=== PATIENT | male | born 1965 | race Caucasian/White ===

== ENCOUNTER 2019-08-22 22:20 | Emergency (ER) | payer OTHER ==
[2019-08-22 23:27] LABS: BASOPHILS % (AUTO) 0.4 % (0.0-5.0); EOSINOPHILS % (AUTO) 1.5 % (0.0-8.0); HEMATOCRIT 44.1 % (42-54); LYMPHOCYTES % (AUTO) 20.7 % (21.0-51.0); MEAN CORPUSCULAR HEMOGLOBIN 30.1 pg (27.0-33.0); MEAN CORPUSCULAR HGB CONC 32.7 g/dL (32.0-36.0); MEAN CORPUSCULAR VOLUME 92.3 fL (79-99); MONOCYTES % (AUTO) 9.9 % (3.0-13.0); NEUTROPHILS % (AUTO) 66.9 % (40.0-77.0); PLATELET COUNT (AUTO) 121 K/uL (130-400); RED BLOOD CELL COUNT(AUTO) 4.78 MIL/uL (4.50-6.20); RED CELL DISTRIBUTION WIDTH 12.8 % (11.0-15.5); WHITE BLOOD COUNT (AUTO) 6.7 K/uL (4.8-10.8)
[2019-08-22 23:39] LABS: CREATININE 1.3 mg/dL (0.5-1.5); POTASSIUM 3.7 mmol/L (3.5-5.1)
[2019-08-22 23:44] LABS: ALBUMIN 3.8 g/dL (3.5-5.0); BILIRUBIN,TOTAL 0.5 mg/dL (0.2-1.0); TOTAL PROTEIN, SERUM 7.4 g/dL (6.0-8.3)
== END 2019-08-23 00:07 | disposition home or self-care (01) ==
LOC: EDH 22:20
DX: J11.1 Influenza due to unidentified influenza virus with other respiratory manifestations (principal); F43.10 Post-traumatic stress disorder, unspecified; I25.10 Atherosclerotic heart disease of native coronary artery without angina pectoris; F41.9 Anxiety disorder, unspecified; F32.9 Major depressive disorder, single episode, unspecified; I10 Essential (primary) hypertension; E11.9 Type 2 diabetes mellitus without complications; Z72.0 Tobacco use; Z90.49 Acquired absence of other specified parts of digestive tract; Z98.890 Other specified postprocedural states; Z88.1 Allergy status to other antibiotic agents
CPT/HCPCS: 36415; 71046; 80053; 84484; 85025; 87804; 93005

== ENCOUNTER 2022-05-27 13:02 | Emergency (ER) | payer OTHER ==
[~2022-05-27] VITALS: Ht 167.6 cm; Wt 132.4 kg
[2022-05-27 13:50] LABS: BASOPHILS % (AUTO) 0.5 % (0.0-5.0); EOSINOPHILS % (AUTO) 3.1 % (0.0-8.0); HEMATOCRIT 44.5 % (42-54); LYMPHOCYTES % (AUTO) 16.4 % (21.0-51.0); MEAN CORPUSCULAR HEMOGLOBIN 30.6 pg (27.0-33.0); MEAN CORPUSCULAR HGB CONC 35.1 g/dL (32.0-36.0); MEAN CORPUSCULAR VOLUME 87.3 fL (79-99); MONOCYTES % (AUTO) 7.2 % (3.0-13.0); NEUTROPHILS % (AUTO) 71.9 % (40.0-77.0); PLATELET COUNT (AUTO) 164 K/uL (130-400); RED CELL DISTRIBUTION WIDTH 12.8 % (11.0-15.5); WHITE BLOOD COUNT (AUTO) 12.7 K/uL (4.8-10.8)
[2022-05-27 13:58] LABS: HEMOGLOBIN A1C 11.4 % (4.0-6.0)
[2022-05-27 13:59] LABS: CREATININE 1.1 mg/dL (0.5-1.5); POTASSIUM 4.1 mmol/L (3.5-5.1)
[2022-05-27 14:04] LABS: ALBUMIN 3.6 g/dL (3.5-5.0); TOTAL PROTEIN, SERUM 7.4 g/dL (6.0-8.3)
[2022-05-27 15:09] VITALS: BP 136/92
== END 2022-05-27 15:11 | disposition home or self-care (01) ==
LOC: EDH 13:02
DX: B37.9 Candidiasis, unspecified (principal); J44.9 Chronic obstructive pulmonary disease, unspecified; E11.9 Type 2 diabetes mellitus without complications; E78.00 Pure hypercholesterolemia, unspecified; I10 Essential (primary) hypertension; Z90.49 Acquired absence of other specified parts of digestive tract; Z98.890 Other specified postprocedural states
CPT/HCPCS: 36415; 80053; 83036; 83605; 84145; 85025

== ENCOUNTER 2024-01-03 23:32 | Inpatient (IN) | payer OTHER ==
[~2024-01-03] VITALS: Ht 165.1 cm; Wt 129.4 kg
[2024-01-04] VITALS (14 sets, daily range): BP systolic 115–134; BP diastolic 68–84; PULSE 78–104; RESP 18–21; O2SAT 94–98
[2024-01-04] MEDS: SOLU-MEDROL 125MG VIAL IVP ONE (00:24)
[2024-01-04] MEDS: IPRATROPIUM/ALBUTEROL SULFATE 3 ML SOLUTION IH ONE (00:32)
[2024-01-04 00:53] LABS: BASOPHILS # (AUTO) 0.15 K/uL (0.00-0.20); BASOPHILS % (AUTO) 1.2 % (0.0-5.0); EOSINOPHILS % (AUTO) 11.7 % (0.0-8.0); HEMATOCRIT 51.2 % (42-54); IMMATURE GRANULOCYTE ABSOLUTE 0.07 K/uL (0-1); LYMPHOCYTES # (AUTO) 3.6 K/uL (1.0-4.8); LYMPHOCYTES % (AUTO) 27.7 % (21.0-51.0); MEAN CORPUSCULAR HEMOGLOBIN 30.7 pg (27.0-33.0); MEAN CORPUSCULAR VOLUME 90.5 fL (79-99); MONOCYTES # (AUTO) 0.9 K/uL (0.1-1.0); MONOCYTES % (AUTO) 6.6 % (3.0-13.0); NEUTROPHILS # (AUTO) 6.7 K/uL (1.8-7.7); NEUTROPHILS % (AUTO) 52.3 % (40.0-77.0); PLATELET COUNT (AUTO) 184 K/uL (130-400); RED BLOOD CELL COUNT(AUTO) 5.66 MIL/uL (4.50-6.20); RED CELL DISTRIBUTION WIDTH 12.7 % (11.0-15.5); WHITE BLOOD COUNT (AUTO) 12.9 K/uL (4.8-10.8)
[2024-01-04 01:13] LABS: B-TYPE NATRIURETIC PEPTIDE 63 pg/mL (0-100)
[2024-01-04 01:16] LABS: CREATININE 1.2 mg/dL (0.5-1.3); POTASSIUM 4.1 mmol/L (3.5-5.1)
[2024-01-04 01:21] LABS: ALBUMIN 3.9 g/dL (3.5-5.0); BILIRUBIN,TOTAL 0.6 mg/dL (0.2-1.0); TOTAL PROTEIN, SERUM 7.3 g/dL (6.0-8.3)
[2024-01-04] MEDS: SOLU-MEDROL 125MG VIAL IVP SCH (02:22)
[2024-01-04] MEDS ORDERED: KCL 20 MEQ ERTAB PO PRN (02:30)
[2024-01-04] MEDS ORDERED: ALBUTEROL 0.083% 2.5 MG/3 ML INH IH PRN ×2 (02:30→07:00)
[2024-01-04] MEDS ORDERED: HYDROCODONE/ACETAMINOPHEN 5/325 MG TAB PO PRN (02:30)
[2024-01-04] MEDS ORDERED: POTASSIUM CHLORIDE 10% ELIXIR 20 MEQ/15 ML UDCUP PO PRN (02:30)
[2024-01-04] MEDS ORDERED: DOCUSATE SODIUM 100 MG CAP PO PRN (02:30)
[2024-01-04] MEDS ORDERED: MAGNESIUM 2GM PREMIX 50ML 50 ML IV PRN (02:30)
[2024-01-04] MEDS ORDERED: LACTULOSE 20 GM/30 ML UDCUP PO PRN (02:30)
[2024-01-04] MEDS ORDERED: LABETALOL 20MG SYG IV PRN (02:30)
[2024-01-04] MEDS ORDERED: HYDRALAZINE 20MG/ML VIAL IV PRN (02:30)
[2024-01-04] MEDS ORDERED: POTASSIUM CHLORIDE 10MEQ/100ML 100 ML IV PRN (02:30)
[2024-01-04] MEDS ORDERED: ONDANSETRON 4MG INJ IVP PRN (02:30)
[2024-01-04] MEDS ORDERED: TRAMADOL HCL 50 MG TABLET PO PRN (02:30)
[2024-01-04 02:39] LABS: ADD UA MICROSCOPIC YES; APPEARANCE,URINE CLEAR (CLEAR); BILIRUBIN,URINE NEGATIVE (NEGATIVE); COLOR,URINE LIGHT-YELLOW (YELLOW); GLUCOSE, URINE (UA) 50 mg/dL (NEGATIVE); KETONES,URINE NEGATIVE (NEGATIVE); LEUKOCYTE ESTERASE ,URINE NEGATIVE Leu/uL (NEGATIVE); NITRATE,URINE NEGATIVE (NEGATIVE); OCCULT BLOOD,URINE NEGATIVE (NEGATIVE); PH,URINE 5.5 (5.0-8.0); PROTEIN,URINE NEGATIVE (NEGATIVE); UROBILINOGEN,URINE 0.2 mg/dL (0.2-1.0)
[2024-01-04 02:45] LABS: BACTERIA,URINE RARE /HPF (None Seen); MUCUS,URINE RARE LPF (None Seen); RBC,URINE 0-1 /HPF (0-1); SQUAMOUS EPITHELIAL CELL,UR RARE /HPF (0-2)
[2024-01-04] MEDS ORDERED: ATEN25TA PO (04:13)
[2024-01-04] MEDS ORDERED: BUSP15TA3 PO (04:13)
[2024-01-04] MEDS ORDERED: ALBUTERO (04:13)
[2024-01-04] MEDS ORDERED: EMPA25TA PO (04:13)
[2024-01-04] MEDS ORDERED: ASPI-1197 PO (04:13)
[2024-01-04] MEDS ORDERED: TIOT4MIS2 IH (04:13)
[2024-01-04] MEDS ORDERED: METF-446 PO (04:13)
[2024-01-04] MEDS ORDERED: VITAMIN d PO (04:13)
[2024-01-04] MEDS ORDERED: AMLO-257 PO (04:13)
[2024-01-04] MEDS ORDERED: OMEG100033 PO (04:13)
[2024-01-04] MEDS ORDERED: LITH300T4 PO (04:13)
[2024-01-04] MEDS ORDERED: PARO40TA72 PO (04:13)
[2024-01-04 05:00] LABS: BASOPHILS # (AUTO) 0.13 K/uL (0.00-0.20); EOSINOPHILS # (AUTO) 1.53 K/uL (0.00-0.70); EOSINOPHILS % (AUTO) 11.9 % (0.0-8.0); HEMATOCRIT 50.5 % (42-54); IMMATURE GRANULOCYTE ABSOLUTE 0.07 K/uL (0-1); LYMPHOCYTES # (AUTO) 3.7 K/uL (1.0-4.8); MEAN CORPUSCULAR HEMOGLOBIN 31.7 pg (27.0-33.0); MEAN CORPUSCULAR HGB CONC 34.1 g/dL (32.0-36.0); MONOCYTES # (AUTO) 0.9 K/uL (0.1-1.0); MONOCYTES % (AUTO) 6.9 % (3.0-13.0); NEUTROPHILS # (AUTO) 6.5 K/uL (1.8-7.7); NEUTROPHILS % (AUTO) 50.7 % (40.0-77.0); PLATELET COUNT (AUTO) 186 K/uL (130-400); RED BLOOD CELL COUNT(AUTO) 5.43 MIL/uL (4.50-6.20); RED CELL DISTRIBUTION WIDTH 12.9 % (11.0-15.5); WHITE BLOOD COUNT (AUTO) 12.9 K/uL (4.8-10.8)
[2024-01-04] MEDS: ZOSYN 3.375GM +NS 50ML IVPB SCH (05:44)
[2024-01-04] MEDS: FUROSEMIDE 20MG VIAL IV SCH (05:44)
[2024-01-04] MEDS: INSULIN HUMULIN R 100 UNIT/ML 3ML SQ SCH (06:02)
[2024-01-04] MEDS: IPRATROPIUM/ALBUTEROL SULFATE 3 ML SOLUTION IH SCH (07:08)
[2024-01-04] MEDS: ASPIRIN 81MG CHEW TAB PO SCH (09:54)
[2024-01-04] MEDS: FISH OIL 1000 MG/CAP PO SCH (09:54)
[2024-01-04] MEDS: BUSPIRONE HCL 5 MG TABLET PO SCH (09:56)
[2024-01-04] MEDS: AMLODIPINE 5 MG TAB PO SCH (09:59)
[2024-01-04] MEDS: ATENOLOL 25 MG TABLET PO SCH (09:59)
[2024-01-04] MEDS: PAROXETINE HCL 20 MG TABLET PO SCH (10:00)
[2024-01-04] MEDS: LITHIUM CARBONATE 150 MG CAPSULE PO SCH (10:11)
[2024-01-04 10:28] LABS: AMPHET/METH SCREEN,URINE NEGATIVE (NEGATIVE); BARBITURATE SCREEN, URINE NEGATIVE (NEGATIVE); BENZODIAZEPINES SCREEN,URINE NEGATIVE (NEGATIVE); CANNABINOID SCREEN,URINE NEGATIVE (NEGATIVE); COCAINE SCREEN,URINE NEGATIVE (NEGATIVE); OPIATE SCREEN,URINE NEGATIVE (NEGATIVE); PHENCYCLIDINE SCREEN,URINE NEGATIVE (NEGATIVE)
[2024-01-04 11:54] LABS: ABG BASE EXCESS -2.6 mmol/L (-2.0-3.0); ABG HCO3 21.3 mmol/L (21.0-28.0); ABG PCO2 34 mmHg (35-48); DEVICE COMMENT RR; PO2, ARTERIAL BG 79.8 mmHg (83.0-108.0); VENT MODE, BG RA (ROOM AIR)
[2024-01-04] MEDS: BUDESONIDE 0.5 MG/2 ML INH IH SCH (18:23)
[2024-01-04 20:09] LABS: RAPID GROUP A STREP negative (NEGATIVE)
[2024-01-04 20:19] LABS: COVID19 (SARS ANTIGEN RAPID) PRESUMPTIVE NEGATIVE (NEGATIVE); INFLUENZA TYPE A Negative For Type A (NEGATIVE); INFLUENZA TYPE B Negative For Type B (NEGATIVE)
[2024-01-05] VITALS (14 sets, daily range): BP systolic 92–125; BP diastolic 50–81; PULSE 78–102; RESP 18–22; O2SAT 95–97
[2024-01-05 02:11] LABS: BASOPHILS # (AUTO) 0.04 K/uL (0.00-0.20); BASOPHILS % (AUTO) 0.2 % (0.0-5.0); EOSINOPHILS # (AUTO) 0.01 K/uL (0.00-0.70); HEMATOCRIT 47.2 % (42-54); IMMATURE GRANULOCYTE ABSOLUTE 0.18 K/uL (0-1); LYMPHOCYTES # (AUTO) 1.4 K/uL (1.0-4.8); LYMPHOCYTES % (AUTO) 6.5 % (21.0-51.0); MEAN CORPUSCULAR HEMOGLOBIN 30.8 pg (27.0-33.0); MEAN CORPUSCULAR HGB CONC 34.5 g/dL (32.0-36.0); MEAN CORPUSCULAR VOLUME 89.2 fL (79-99); MONOCYTES # (AUTO) 1.3 K/uL (0.1-1.0); MONOCYTES % (AUTO) 6.3 % (3.0-13.0); NEUTROPHILS # (AUTO) 17.9 K/uL (1.8-7.7); NEUTROPHILS % (AUTO) 86.1 % (40.0-77.0); PLATELET COUNT (AUTO) 200 K/uL (130-400); RED BLOOD CELL COUNT(AUTO) 5.29 MIL/uL (4.50-6.20); RED CELL DISTRIBUTION WIDTH 12.6 % (11.0-15.5); WHITE BLOOD COUNT (AUTO) 20.8 K/uL (4.8-10.8)
[2024-01-05 02:21] LABS: INR <= 0.93 (0.85-1.15); PROTHROMBIN TIME 10.9 SEC (9.6-11.6)
[2024-01-05 02:33] LABS: ALBUMIN 3.8 g/dL (3.5-5.0); BILIRUBIN,DIRECT 0.2 mg/dL (0.0-0.3); BILIRUBIN,TOTAL 0.7 mg/dL (0.2-1.0); CREATININE 1.7 mg/dL (0.5-1.3); POTASSIUM 4.3 mmol/L (3.5-5.1); THYROID STIMULATING HORMONE 0.47 uIU/mL (0.36-3.74)
[2024-01-05 02:36] LABS: B-TYPE NATRIURETIC PEPTIDE 104 pg/mL (0-100)
[2024-01-05 02:38] LABS: D-DIMER 335 ng/mL (0-500)
[2024-01-05] MEDS ORDERED: PREDNISONE 20 MG TABLET PO SCH (09:00)
[2024-01-05] MEDS ORDERED: POTASSIUM CHLORIDE 10MEQ SR TAB PO PRN (16:30)
[2024-01-05] MEDS: CEFEPIME HCL 1 GM VIAL IVPB SCH (16:52)
[2024-01-06] VITALS (16 sets, daily range): BP systolic 102–119; BP diastolic 64–75; PULSE 47–96; RESP 17–20; O2SAT 96–98
[2024-01-06 06:02] LABS: BASOPHILS # (AUTO) 0.07 K/uL (0.00-0.20); BASOPHILS % (AUTO) 0.4 % (0.0-5.0); EOSINOPHILS # (AUTO) 0.23 K/uL (0.00-0.70); EOSINOPHILS % (AUTO) 1.4 % (0.0-8.0); LYMPHOCYTES # (AUTO) 3.5 K/uL (1.0-4.8); LYMPHOCYTES % (AUTO) 22.1 % (21.0-51.0); MEAN CORPUSCULAR HEMOGLOBIN 31.5 pg (27.0-33.0); MEAN CORPUSCULAR HGB CONC 33.4 g/dL (32.0-36.0); MEAN CORPUSCULAR VOLUME 94.2 fL (79-99); MONOCYTES # (AUTO) 1.1 K/uL (0.1-1.0); MONOCYTES % (AUTO) 6.7 % (3.0-13.0); NEUTROPHILS # (AUTO) 10.9 K/uL (1.8-7.7); NEUTROPHILS % (AUTO) 68.8 % (40.0-77.0); PLATELET COUNT (AUTO) 167 K/uL (130-400); RED BLOOD CELL COUNT(AUTO) 5.31 MIL/uL (4.50-6.20); RED CELL DISTRIBUTION WIDTH 12.7 % (11.0-15.5); WHITE BLOOD COUNT (AUTO) 15.9 K/uL (4.8-10.8)
[2024-01-06 06:20] LABS: ALBUMIN 3.7 g/dL (3.5-5.0); CREATININE 1.1 mg/dL (0.5-1.3); MAGNESIUM 2.1 mg/dL (1.80-2.40); PHOSPHORUS 3.3 mg/dL (2.5-4.9); POTASSIUM 4.5 mmol/L (3.5-5.1); TOTAL PROTEIN, SERUM 6.8 g/dL (6.0-8.3)
[2024-01-06] MEDS: FUROSEMIDE 20 MG TABLET PO SCH (08:41)
[2024-01-06] MEDS: IPRATROPIUM 0.5 MG/2.5 ML INH IH SCH (18:25)
[2024-01-07] VITALS (7 sets, daily range): BP systolic 118–124; BP diastolic 72–79; PULSE 78–90; RESP 16–20; O2SAT 97–98
[2024-01-07 05:33] LABS: BASOPHILS # (AUTO) 0.11 K/uL (0.00-0.20); BASOPHILS % (AUTO) 0.6 % (0.0-5.0); EOSINOPHILS # (AUTO) 0.61 K/uL (0.00-0.70); EOSINOPHILS % (AUTO) 3.5 % (0.0-8.0); LYMPHOCYTES # (AUTO) 3.9 K/uL (1.0-4.8); LYMPHOCYTES % (AUTO) 22.4 % (21.0-51.0); MEAN CORPUSCULAR HEMOGLOBIN 30.7 pg (27.0-33.0); MEAN CORPUSCULAR HGB CONC 33.3 g/dL (32.0-36.0); MEAN CORPUSCULAR VOLUME 92.3 fL (79-99); MONOCYTES # (AUTO) 1.3 K/uL (0.1-1.0); MONOCYTES % (AUTO) 7.4 % (3.0-13.0); NEUTROPHILS # (AUTO) 11.3 K/uL (1.8-7.7); NEUTROPHILS % (AUTO) 65.5 % (40.0-77.0); PLATELET COUNT (AUTO) 186 K/uL (130-400); RED BLOOD CELL COUNT(AUTO) 5.31 MIL/uL (4.50-6.20); RED CELL DISTRIBUTION WIDTH 12.6 % (11.0-15.5); WHITE BLOOD COUNT (AUTO) 17.3 K/uL (4.8-10.8)
[2024-01-07 05:49] LABS: ALBUMIN 3.6 g/dL (3.5-5.0); BILIRUBIN,TOTAL 1.4 mg/dL (0.2-1.0); CREATININE 1.1 mg/dL (0.5-1.3); POTASSIUM 4.3 mmol/L (3.5-5.1)
[2024-01-07] MEDS ORDERED: LEVO750T39 PO (10:26)
== END 2024-01-07 11:45 | disposition home or self-care (01) | DRG 291 ==
LOC: EDH 23:32 → EDHIP 01-04 02:03 → 3CH 01-04 03:05
PROVIDERS: ADMIT Hospitalist; ATTEND Hospitalist
DX: I11.0 Hypertensive heart disease with heart failure (principal); I50.23 Acute on chronic systolic (congestive) heart failure; J44.1 Chronic obstructive pulmonary disease with (acute) exacerbation; E87.1 Hypo-osmolality and hyponatremia; N17.9 Acute kidney failure, unspecified; Z68.42 Body mass index [BMI] 45.0-49.9, adult; E11.65 Type 2 diabetes mellitus with hyperglycemia; Z20.822 Contact with and (suspected) exposure to COVID-19; I25.10 Atherosclerotic heart disease of native coronary artery without angina pectoris; E66.01 Morbid (severe) obesity due to excess calories; E78.00 Pure hypercholesterolemia, unspecified; F17.210 Nicotine dependence, cigarettes, uncomplicated; Z79.51 Long term (current) use of inhaled steroids; Z79.899 Other long term (current) drug therapy; Z87.442 Personal history of urinary calculi; Z90.49 Acquired absence of other specified parts of digestive tract; Z95.5 Presence of coronary angioplasty implant and graft; Z88.1 Allergy status to other antibiotic agents
CPT/HCPCS: 36415; 36600; 71045; 71250; 80053; 80076; 80178; 80305; 81001; 82140; 82550; 82803; 82948; 83735; 83880; 84100; 84145; 84443; 85025; 85378; 85610; 87088; 87426; 87804; 87880; 93005; 93306; 94640; 94660; 94664; 94667; 94668; 96372; 96375; G0378; J0692; J1815; J1940; J2543; J2919

== ENCOUNTER → 2024-02-06 | Outpatient (CLI) | payer OTHER ==
[~2024-02-06] MED LIST: ALBUTERO; AMLO-257 PO; ASPI-1197 PO; BUSP15TA3 PO; EMPA25TA PO; IOHEXOL 350 MG/ML 100ML INFUS..BTL IV ONE; LEVO750T39 PO; LITH300T4 PO; METF-446 PO; METOPROLOL TARTRATE 1 MG/ML 5ML VIAL IV ONE; OMEG100033 PO; TIOT4MIS2 IH; VITAMIN d PO
== END | disposition home or self-care (01) ==
LOC: RAH 12:43
PROVIDERS: ATTEND Student in an Organized Health Care Education/Training Program
DX: I50.9 Heart failure, unspecified (principal)
CPT/HCPCS: 75574; J3490 ×2; Q9967

== ENCOUNTER 2024-04-16 09:47 | Day surgery (SDC) | payer OTHER ==
[2024-04-14 11:42] VITALS: BP 153/97; PULSE 84; RESP 18; TEMP 98.6
[2024-04-14 11:46] LABS: EOSINOPHILS # (AUTO) 0.27 K/uL (0.00-0.70); EOSINOPHILS % (AUTO) 2.6 % (0.0-8.0); HEMATOCRIT 51.3 % (42-54); IMMATURE GRANULOCYTE ABSOLUTE 0.07 K/uL (0-1); LYMPHOCYTES # (AUTO) 2.6 K/uL (1.0-4.8); LYMPHOCYTES % (AUTO) 25.1 % (21.0-51.0); MEAN CORPUSCULAR HEMOGLOBIN 31.1 pg (27.0-33.0); MEAN CORPUSCULAR HGB CONC 33.7 g/dL (32.0-36.0); MEAN CORPUSCULAR VOLUME 92.1 fL (79-99); MONOCYTES # (AUTO) 0.7 K/uL (0.1-1.0); NEUTROPHILS # (AUTO) 6.5 K/uL (1.8-7.7); NEUTROPHILS % (AUTO) 63.6 % (40.0-77.0); PLATELET COUNT (AUTO) 179 K/uL (130-400); RED BLOOD CELL COUNT(AUTO) 5.57 MIL/uL (4.50-6.20); RED CELL DISTRIBUTION WIDTH 12.7 % (11.0-15.5); WHITE BLOOD COUNT (AUTO) 10.2 K/uL (4.8-10.8)
[2024-04-14 11:56] LABS: CREATININE 1.1 mg/dL (0.5-1.3); POTASSIUM 4.9 mmol/L (3.5-5.1)
[2024-04-14 12:00] LABS: INR 0.99 (0.85-1.15); PROTHROMBIN TIME 10.7 SEC (9.6-11.6)
[2024-04-14 12:02] LABS: PARTIAL THROMBOPLASTIN TIME 28.5 SEC (26.3-35.5)
[2024-04-14 12:16] LABS: B-TYPE NATRIURETIC PEPTIDE 11 pg/mL (0-100)
[2024-04-16] VITALS (8 sets, daily range): BP systolic 125–160; BP diastolic 71–84; PULSE 69–86; RESP 12–20; TEMP 97.8–98.2
[~2024-04-16] VITALS: Ht 170.2 cm; Wt 125.9 kg
[~2024-04-16 09:47] MED LIST changes: +0.9%NACL 1000ML 1,000 ML IV SCH; -ALBUTERO; +ALBUTERO IH; +ATOR40TA71 PO; +FURO-151 PO; -IOHEXOL 350 MG/ML 100ML INFUS..BTL IV ONE; -LEVO750T39 PO; -METOPROLOL TARTRATE 1 MG/ML 5ML VIAL IV ONE; +NITR0.4T50 SL; +SACU1TAB7 PO; +prozac PO
[2024-04-16] MEDS ORDERED: LIDOCAINE HCL 400MG/20ML VIAL ONE (10:31)
[2024-04-16] MEDS ORDERED: IOHEXOL 350 MG/ML 100ML INFUS..BTL IV ONE (10:31)
[2024-04-16] MEDS ORDERED: HEParin-NS 1,000 UNIT/500 ML 1,000 ML IV ONE (10:33)
[2024-04-16] MEDS ORDERED: NITROGLYCERIN 50MG VIAL ONE (10:33)
[2024-04-16] MEDS ORDERED: VERAPAMIL HCL 2.5 MG/ML VIAL ONE (10:38)
[2024-04-16] MEDS ORDERED: HEParin 10,000 UNIT/10ML (1,000 UNIT/ML) VIAL ONE (10:38)
[2024-04-16] MEDS ORDERED: FENTanyl CITRate PF 50 MCG/1 ML 2ML VIAL ONE (11:03)
[2024-04-16] MEDS ORDERED: MIDAZOLAM HCL 1 MG/ML 2ML VIAL ONE ×2 (11:03→11:35)
[2024-04-16] MEDS ORDERED: 0.9%NACL 1000ML 1,000 ML IV SCH (13:00)
[2024-04-16] MEDS ORDERED: DEXTROSE 50%-WATER 50 ML DISP.SYRIN IV PRN (13:00)
[2024-04-16] MEDS ORDERED: GLUCAGON 1MG KIT 1 MG ML IM PRN (13:00)
[2024-04-16] MEDS ORDERED: FLUO40CA7 PO (14:25)
== END 2024-04-16 15:55 | disposition home or self-care (01) ==
LOC: DAH 09:47
PROVIDERS: ATTEND Student in an Organized Health Care Education/Training Program
DX: I25.118 Atherosclerotic heart disease of native coronary artery with other forms of angina pectoris (principal); E78.2 Mixed hyperlipidemia; G47.00 Insomnia, unspecified; I45.10 Unspecified right bundle-branch block; I13.0 Hypertensive heart and chronic kidney disease with heart failure and stage 1 through stage 4 chronic kidney disease, or unspecified chronic kidney disease; I50.22 Chronic systolic (congestive) heart failure; E11.22 Type 2 diabetes mellitus with diabetic chronic kidney disease; N18.9 Chronic kidney disease, unspecified; E66.9 Obesity, unspecified; Z88.1 Allergy status to other antibiotic agents; Z68.41 Body mass index [BMI] 40.0-44.9, adult; Z79.82 Long term (current) use of aspirin; Z79.84 Long term (current) use of oral hypoglycemic drugs; Z79.899 Other long term (current) drug therapy
CPT/HCPCS: 80048; 83880; 85025; 85610; 85730; 36415; 71045; 93005; 93460; 82948; C1894 ×2; C1769 ×2; A4649; Q9965; J3010; J3490 ×3; J1644 ×2; J2250 ×2; Q9967; A4215; A4222; A4663; A4216; A4606; A4223 ×3; A4221; 99156; 99157

== ENCOUNTER → 2024-09-08 | Outpatient (CLI) | payer OTHER ==
[~2024-09-08] MED LIST changes: -0.9%NACL 1000ML 1,000 ML IV SCH; +FLUO40CA7 PO; -prozac PO
[2024-09-08 12:06] LABS: BASOPHILS # (AUTO) 0.18 K/uL (0.00-0.20); BASOPHILS % (AUTO) 1.1 % (0.0-5.0); EOSINOPHILS % (AUTO) 4.2 % (0.0-8.0); HEMATOCRIT 50.6 % (42-54); IMMATURE GRANULOCYTE ABSOLUTE 0.19 K/uL (0-1); LYMPHOCYTES # (AUTO) 5.3 K/uL (1.0-4.8); LYMPHOCYTES % (AUTO) 31.6 % (21.0-51.0); MEAN CORPUSCULAR HEMOGLOBIN 31.3 pg (27.0-33.0); MEAN CORPUSCULAR HGB CONC 33.6 g/dL (32.0-36.0); MONOCYTES # (AUTO) 1.3 K/uL (0.1-1.0); PLATELET COUNT (AUTO) 274 K/uL (130-400); RED BLOOD CELL COUNT(AUTO) 5.44 MIL/uL (4.50-6.20); RED CELL DISTRIBUTION WIDTH 13.2 % (11.0-15.5); WHITE BLOOD COUNT (AUTO) 16.6 K/uL (4.8-10.8)
[2024-09-08 12:13] LABS: HEMOGLOBIN A1C 6.4 % (4.0-6.0)
[2024-09-08 12:31] LABS: ALBUMIN 4.1 g/dL (3.5-5.0); BILIRUBIN,TOTAL 0.5 mg/dL (0.2-1.0); CREATININE 1.4 mg/dL (0.5-1.3); POTASSIUM 4.7 mmol/L (3.5-5.1); THYROID STIMULATING HORMONE 2.88 uIU/mL (0.36-3.74); TOTAL PROTEIN, SERUM 7.8 g/dL (6.0-8.3)
--- NOTE | 2024-09-15 09:37 | HMCSR ---
APPROVED REPORT EXAM: Two-dimensional and M-mode echocardiogram with Doppler and color Doppler. INDICATION ICD: I25.5 Ischemic cardiomyopathy 2D Dimensions RVDd3.4 cmLVEF(%)29.3 (>50%)LVED Vol(simp.)103.0 mL IVSd1.2 (0.7-1.1cm)FS(%)14 %LVES Vol(simp.)72.0 mL LVDd5.7 (3.8-5.6cm)Ao Root(2D)3.7 (2.0-3.7cm)LVEF(%, simp.)30 % PWd0.9 (0.7-1.1cm)LVOT diam2.1 (1.8-2.4cm)LA ESV INDEX (BP)13.76 mL/m2 LVDs4.9 (2.5-4.0cm)IVC diam1.2 cm Aortic Valve AoV Vmax1.0 m/Bobby Peak GR4.2 mmHgLVOT Vmax0.8 m/s AoV VTI0.2 mAo Mean GR2.5 mmHgLVOT VTI0.13 m GENI (VMAX)2.6 cm2AVA (VTI) 2.6 cm2 Mitral Valve MV E Vmax47.0 cm/sDECEL Klyi049 ms MV A Vmax95.4 cm/sP 1/2 T40 ms E/A ratio0.5MVA (PHT)5.5 cm2 TDI E/E' Fitgox49.5E/E' Bhptujz89.2 Pulmonary Valve PV Vmax0.7 m/sPV VTI0.11 mPV Mean GR1 mmHg PV Peak GR2.2 mmHg Tricuspid Valve RAP (EST) 3 mmHg Left Ventricle The left ventricle is mildly dilated. There is mild asymmetric left ventricular hypertrophy. LVEF is 25-30%. Grade 1 diastolic dysfunction Right Ventricle The right ventricle is normal size. Right ventricular systolic function is moderately reduced. Atria The left atrium size is normal. Atrial septal aneurysm is present. The right atrium size is normal. Aortic Valve Aortic valve is trileaflet. Aortic valve leaflets are sclerotic but open well. Trace aortic regurgita tion. There is no aortic valvular stenosis. Mitral Valve The mitral valve is mildly thickened. Mitral regurgitation is trace to mild. There is no mitral valve stenosis. Tricuspid Valve The tricuspid valve leaflets appear normal. There is trace tricuspid regurgitation. Pulmonic Valve The pulmonic valve leaflets are thin and pliable; valve motion is normal. There is trace pulmonic pilar vular regurgitation. Great Vessels The aortic root is normal in size. The IVC is normal in size and collapses >50% with inspiration. Pericardium No pericardial effusion. Conclusion The left ventricle is mildly dilated. There is mild asymmetric left ventricular hypertrophy. LVEF is 25-30%. Grade 1 diastolic dysfunction The right ventricle is normal size. Right ventricular systolic function is moderately reduced. The left atrium size is normal. The right atrium size is normal. Atrial septal aneurysm is present. Mitral regurgitation is trace to mild. No pericardial effusion.
== END | disposition home or self-care (01) ==
LOC: SHCH 08:23
PROVIDERS: ATTEND Student in an Organized Health Care Education/Training Program
DX: I25.5 Ischemic cardiomyopathy (principal); I50.9 Heart failure, unspecified; E11.9 Type 2 diabetes mellitus without complications
CPT/HCPCS: 36415; 80053; 80061; 83036; 83880; 84443; 85025; 93306

== ENCOUNTER 2024-10-15 08:28 | Day surgery (SDC) | payer OTHER ==
[2024-10-13 09:50] VITALS: BP 85/64; PULSE 84; RESP 20; TEMP 97.6
[2024-10-13 10:24] LABS: BASOPHILS # (AUTO) 0.09 K/uL (0.00-0.20); BASOPHILS % (AUTO) 0.8 % (0.0-5.0); EOSINOPHILS # (AUTO) 0.38 K/uL (0.00-0.70); EOSINOPHILS % (AUTO) 3.2 % (0.0-8.0); HEMATOCRIT 51.4 % (42-54); IMMATURE GRANULOCYTE ABSOLUTE 0.09 K/uL (0-1); LYMPHOCYTES # (AUTO) 3.3 K/uL (1.0-4.8); LYMPHOCYTES % (AUTO) 27.9 % (21.0-51.0); MEAN CORPUSCULAR HEMOGLOBIN 31.3 pg (27.0-33.0); MEAN CORPUSCULAR HGB CONC 33.3 g/dL (32.0-36.0); MEAN CORPUSCULAR VOLUME 94.1 fL (79-99); MONOCYTES # (AUTO) 0.7 K/uL (0.1-1.0); MONOCYTES % (AUTO) 5.6 % (3.0-13.0); NEUTROPHILS # (AUTO) 7.3 K/uL (1.8-7.7); NEUTROPHILS % (AUTO) 61.7 % (40.0-77.0); PLATELET COUNT (AUTO) 224 K/uL (130-400); RED BLOOD CELL COUNT(AUTO) 5.46 MIL/uL (4.50-6.20); RED CELL DISTRIBUTION WIDTH 13.2 % (11.0-15.5); WHITE BLOOD COUNT (AUTO) 11.8 K/uL (4.8-10.8)
--- NOTE | 2024-10-13 10:28 | EKG ---
[facility] Test Date: 2024-10-13 Test Time: 10:21:59 Pat Name: DYLLAN NICHOLSON Department: [facility] Room: Gender: M [employer] Checkout Technician: [id number] : 1965 Requested By: RADHA ARANDA Order Number: [id number] Reading MD: Remy Lopez Measurements Intervals [place] Rate: 82 P: 39 TX: 178 QRS: 74 QRSD: 161 T: 37 QT: 426 QTc: 499 Interpretive Statements Sinus rhythm Right bundle branch block Nonspecific STT abnormality Compared to ECG 04/14/2024 11:33:03 No significant changes Electronically Signed On 10-13-2024 12:54:05 SEAM CHECKER by Remy Lopez Please click the below link to view image of tracing.
[2024-10-13 10:32] LABS: CREATININE 1.4 mg/dL (0.5-1.3); POTASSIUM 4.7 mmol/L (3.5-5.1)
[2024-10-13 10:44] LABS: INR 1.01 (0.85-1.15); PROTHROMBIN TIME 10.7 SEC (9.6-11.6)
[2024-10-13 10:46] LABS: PARTIAL THROMBOPLASTIN TIME 28.8 SEC (26.3-35.5)
--- NOTE | 2024-10-13 17:05 | NUR ---
report dr theodore informed of pt low b/p and wbc. no c/o hypotension and pt reported he always runs low. office b/p was 92/60. also that pt made remarks that he was gonna respond with ok but might not necessarily folow instructions. received instructions to have him hold carvedilol, amlodipine and entresto morning of procedure. spouse informed due to pt not available. also reinforced teaching on clears past lunch the day prior to procedure and fasting after midnight if not pt will be cancelled.. spouse voiced understanding.
[~2024-10-15] VITALS: Ht 172.7 cm; Wt 125.1 kg
[~2024-10-15 08:28] MED LIST changes: -LITH300T4 PO; -OMEG100033 PO; +ozempic SQ
[2024-10-15 09:15] VITALS: BP 110/68; PULSE 78; RESP 18; TEMP 97.9
[2024-10-15 09:32] LABS: BASOPHILS % (AUTO) 0.9 % (0.0-5.0); EOSINOPHILS # (AUTO) 0.53 K/uL (0.00-0.70); EOSINOPHILS % (AUTO) 4.6 % (0.0-8.0); HEMATOCRIT 47.8 % (42-54); IMMATURE GRANULOCYTE ABSOLUTE 0.09 K/uL (0-1); LYMPHOCYTES # (AUTO) 3.3 K/uL (1.0-4.8); LYMPHOCYTES % (AUTO) 28.8 % (21.0-51.0); MEAN CORPUSCULAR HGB CONC 33.7 g/dL (32.0-36.0); MEAN CORPUSCULAR VOLUME 92.1 fL (79-99); MONOCYTES # (AUTO) 0.8 K/uL (0.1-1.0); MONOCYTES % (AUTO) 6.5 % (3.0-13.0); NEUTROPHILS # (AUTO) 6.8 K/uL (1.8-7.7); NEUTROPHILS % (AUTO) 58.4 % (40.0-77.0); PLATELET COUNT (AUTO) 203 K/uL (130-400); RED BLOOD CELL COUNT(AUTO) 5.19 MIL/uL (4.50-6.20); RED CELL DISTRIBUTION WIDTH 13.1 % (11.0-15.5); WHITE BLOOD COUNT (AUTO) 11.6 K/uL (4.8-10.8)
[2024-10-15] MEDS ORDERED: CARV12.511 PO (09:57)
[2024-10-15] MEDS: 0.9%NACL 1000ML 1,000 ML IV SCH (10:03)
[2024-10-15 10:19] VITALS: PULSE 85; RESP 18
[2024-10-15] MEDS: ALBUTEROL 0.083% 2.5 MG/3 ML INH IH ONE (10:19)
[2024-10-15] MEDS ORDERED: LIDOCAINE PF 100MG/5ML (2%) SYRINGE 5ML ONE (10:27)
[2024-10-15] MEDS ORDERED: MIDAZOLAM HCL 1 MG/ML 2ML VIAL ONE (10:28)
[2024-10-15] MEDS ORDERED: SUCCINYLCHOLINE CHLORIDE 20 MG/ML 10 ML VIAL ONE (10:28)
[2024-10-15] MEDS ORDERED: rocuRONium bROMide 10MG/1ML 5ML VL ONE (10:28)
[2024-10-15] MEDS ORDERED: proPOFol 10 MG/ML 20ML VIAL IV ONE (10:28)
[2024-10-15] MEDS ORDERED: FENTanyl CITRate PF 50 MCG/1 ML 2ML VIAL ONE (10:29)
== END 2024-10-15 12:55 | disposition home or self-care (01) ==
LOC: DAH 08:28
PROVIDERS: ATTEND Internal Medicine Cardiovascular Disease
DX: I25.5 Ischemic cardiomyopathy (principal); Z53.8 Procedure and treatment not carried out for other reasons; I50.20 Unspecified systolic (congestive) heart failure; I25.10 Atherosclerotic heart disease of native coronary artery without angina pectoris; E11.9 Type 2 diabetes mellitus without complications; E78.5 Hyperlipidemia, unspecified; F17.210 Nicotine dependence, cigarettes, uncomplicated; E66.9 Obesity, unspecified; Z68.41 Body mass index [BMI] 40.0-44.9, adult; Z79.82 Long term (current) use of aspirin; Z88.1 Allergy status to other antibiotic agents; Z79.899 Other long term (current) drug therapy
CPT/HCPCS: 80048; 85025 ×2; 85610; 85730; 36415 ×2; 93005; 82948; 94640; J0330; J3490; J2003; J2250; J2704; J3010

== ENCOUNTER 2024-11-25 19:21 | Emergency (ER) | payer OTHER ==
[~2024-11-25] VITALS: Ht 170.2 cm; Wt 123.4 kg
[~2024-11-25 19:21] MED LIST changes: +CARV12.511 PO
--- NOTE | 2024-11-25 19:31 | NUR ---
TOOK OVER PATIENT AT THIS TIME
[2024-11-25 20:06] LABS: BASOPHILS # (AUTO) 0.09 K/uL (0.00-0.20); BASOPHILS % (AUTO) 0.7 % (0.0-5.0); EOSINOPHILS # (AUTO) 0.36 K/uL (0.00-0.70); EOSINOPHILS % (AUTO) 2.9 % (0.0-8.0); HEMATOCRIT 45.4 % (42-54); IMMATURE GRANULOCYTE ABSOLUTE 0.08 K/uL (0-1); LYMPHOCYTES # (AUTO) 3.7 K/uL (1.0-4.8); LYMPHOCYTES % (AUTO) 30.2 % (21.0-51.0); MEAN CORPUSCULAR HEMOGLOBIN 31.8 pg (27.0-33.0); MEAN CORPUSCULAR HGB CONC 33.9 g/dL (32.0-36.0); MEAN CORPUSCULAR VOLUME 93.8 fL (79-99); MONOCYTES # (AUTO) 0.7 K/uL (0.1-1.0); MONOCYTES % (AUTO) 5.4 % (3.0-13.0); NEUTROPHILS # (AUTO) 7.4 K/uL (1.8-7.7); NEUTROPHILS % (AUTO) 60.2 % (40.0-77.0); PLATELET COUNT (AUTO) 215 K/uL (130-400); RED BLOOD CELL COUNT(AUTO) 4.84 MIL/uL (4.50-6.20); RED CELL DISTRIBUTION WIDTH 12.8 % (11.0-15.5); WHITE BLOOD COUNT (AUTO) 12.4 K/uL (4.8-10.8)
[2024-11-25 20:14] LABS: CARBON DIOXIDE 24 mmol/L (21-32); CHLORIDE 102 mmol/L (101-111); CREATININE 1.5 mg/dL (0.5-1.3); GLOMERULAR FILTR. RATE CALC 54 mL/min (>90); GLUCOSE,RANDOM 137 mg/dL (70-105); POTASSIUM 4.2 mmol/L (3.5-5.1); SODIUM SERUM 138 mmol/L (136-145); UREA NITROGEN, BLOOD 19 mg/dL (7-18)
[2024-11-25 21:11] LABS: ERYTHROCYTE SEDIMENTATION RATE 9 MM/HR (0-20)
[2024-11-25] MEDS ORDERED: SULF1TAB42 PO (21:55)
[2024-11-25] MEDS ORDERED: MUPI22OI2 TP (21:55)
--- NOTE | 2024-11-25 22:00 | ERN ---
ED Note History of Present Illness Stated Complaint: OPEN WOUND ON BOTH FEET Chief Complaint: Wound Check Time Seen by MD: 19:23 Time Seen by Midlevel: 19:26 Dictation: 59 Year old male coming in for evaluation of bilateral plantar wounds. Patient states it started off like athlete's foot and progressed to cracking of the skin and now is concerned because he is diabetic. Denies having any fevers, nausea, vomiting . Allergies: Coded Allergies: ciprofloxacin (Unverified Allergy, Unknown, 08/23/19) Home Meds Reported Medications Carvedilol (Carvedilol) 12.5 Mg Tablet, 12.5 MG PO BID, TAB 10/15/24 [ozempic] No Conflict Check, 1 MG SQ weekly 10/13/24 Fluoxetine HCl (Prozac) 40 Mg Capsule, 40 MG PO AM, CAP 04/16/24 Nitroglycerin (Nitroglycerin) 0.4 Mg Tab.subl, 0.4 MG SL AD PRN for CHEST PAIN, TAB.SL 04/14/24 Atorvastatin Calcium (Atorvastatin Calcium) 40 Mg Tablet, 40 MG PO AM, TAB 04/14/24 Furosemide (Lasix) 40 Mg Tablet, 40 MG PO AM, TAB 04/14/24 Sacubitril/Valsartan (Entresto 49 mg-51 mg Tablet) 49 Mg-51 Mg Tablet, 0.5 EACH PO BID, TAB 04/14/24 [Albutero] No Conflict Check, 2 PUFF IH BID 01/04/24 Tiotropium [place] (Spiriva Respimat) 2.5 Mcg/Actuation Mist.inhal, 2 PUFF IH BID PRN for SHORTNESS OF BREATH 01/04/24 [VITAMIN d] No Conflict Check, PO DAILY 01/04/24 Metformin HCl (Metformin HCl) 1,000 Mg Tablet, 1000 MG PO BID, TAB CONTINUE IN 48 HOURS (04/18/2024) 01/04/24 Empagliflozin (Jardiance) 25 Mg Tablet, 25 MG PO BID, TAB 01/04/24 Buspirone HCl (Buspirone HCl) 15 Mg Tablet, 15 MG PO DAILY, TAB 01/04/24 Aspirin (Aspirin) 81 Mg Tab.chew, 81 MG PO DAILY, TAB.CHEW 01/04/24 Amlodipine Besylate (Amlodipine Besylate) 5 Mg Tablet, 5 MG PO DAILY, TAB 01/04/24 Past Medical History Past Medical History: CHF, COPD, Diabetes-Type II, High Cholesterol, Hypertension, [place] Surgical History: Appendectomy Surgical History Other: ARTERY STENT Social History: Smokers, Lives with family Review of System Dictation Constitutional: Negative for fever,chills, and weight loss Eyes: Negative for injury, pain,redness, and discharge ENT: Negative for injury,pain or swelling Cardiovascular: Negative for chest pain, palpitations, and edema Respiratory: Negative for shortness of breath, cough, and wheezing, Abdomen/GI: Negative for abdominal pain, nausea, vomiting, diarrhea, and constipation Back: Negative for injury and pain : Negative for injury, bleeding and discharge MS/Extremity: Negative for injury and deformity Skin: Negative for rash, and discoloration, bilateral plantar wounds Neuro: Negative for headache, weakness, numbness, tingling, and seizure Psych: Negative for suicide ideation, homicidal ideation, and hallucinations Review of Systems: was completed Initial Vital Sign VS Vital Signs Date Time Temp Pulse Resp B/P (MAP) Pulse Ox O2 Delivery O2 Flow Rate FiO2 11/25/24 19:22 97.0 77 20 104/75 98 Room Air 11/25/24 20:00 0 21 Physical Exam Dictation General: awake, alert, NAD Head/Face: Normocephalic, atraumatic Eyes: PERRL, EOMI, vision at baseline ENT: oral cavity clear, TMs clear, no signs of infection Neck: Trachea midline, supple, no nuchal rigidity Cardiovascular: RRR, normal S1/S2, No MRGs, no JVD Respiratory: CTAB, no respiratory distress, No rales or wheezes Abdomen: Soft, non-tender, non-distended, normal bowel sounds, no guarding or rebound. Skin: Warm, dry, normal turgor, bilateral plantar areas are dry, cracked, there is no drainage, no foul odor. Macerated plantar areas bilaterally MS/Extremity: Pulses equal, no cyanosis, neurovascular intact, FROM Neuro: COAx4, GCS 15, strength 5/5, CN 2-12 intact, normal cerebellar exam, normal gait, Psych: Normal behavior, mood, and affect normal Results (Laboratory/Radiology) Laboratory/Radiology Laboratory Tests Test 11/25/24 19:57 White Blood Count 12.4 K/uL (4.8-10.8) H Red Blood Count 4.84 MIL/uL (4.50-6.20) Hemoglobin 15.4 g/dL (14.0-18.0) Hematocrit 45.4 % (42-54) Mean Corpuscular Volume 93.8 fL (79-99) Mean Corpuscular Hemoglobin 31.8 pg (27.0-33.0) Mean Corpuscular Hemoglobin Concent 33.9 g/dL (32.0-36.0) Red Cell Distribution Width 12.8 % (11.0-15.5) Platelet Count 215 K/uL (130-400) Mean Platelet Volume 10.2 fL (7.5-10.5) Immature Granulocyte % (Auto) 0.6 % (0-1) Neutrophils (%) (Auto) 60.2 % (40.0-77.0) Lymphocytes (%) (Auto) 30.2 % (21.0-51.0) Monocytes (%) (Auto) 5.4 % (3.0-13.0) Eosinophils (%) (Auto) 2.9 % (0.0-8.0) Basophils (%) (Auto) 0.7 % (0.0-5.0) Neutrophils # (Auto) 7.4 K/uL (1.8-7.7) Lymphocytes # (Auto) 3.7 K/uL (1.0-4.8) Monocytes # (Auto) 0.7 K/uL (0.1-1.0) Eosinophils # (Auto) 0.36 K/uL (0.00-0.70) Basophils # (Auto) 0.09 K/uL (0.00-0.20) Absolute Immature Granulocyte (auto 0.08 K/uL (0-1) Nucleated Red Blood Cells 0.0 % (0.0-0.19) Erythrocyte Sedimentation Rate 9 MM/HR (0-20) Sodium Level 138 mmol/L (136-145) Potassium Level 4.2 mmol/L (3.5-5.1) Chloride Level 102 mmol/L (101-111) Carbon Dioxide Level 24 mmol/L (21-32) Blood Urea Nitrogen 19 mg/dL (7-18) H Creatinine 1.5 mg/dL (0.5-1.3) H Glomerular Filtration Rate Calc 54 mL/min (>90) Random Glucose 137 mg/dL (70-105) H Lactic Acid Level 1.9 mmol/L (0.8-2.5) Total Calcium 8.4 mg/dL (8.5-10.1) L C-Reactive Protein, Quantitative < 0.50 mg/L (0.5-3.0) L Labs Reviewed?: Yes ED Course ED Course Orders Procedure Category Date Status Time Cbc With Differential LAB 11/25/24 Complete 19: Basic Metabolic Panel LAB 11/25/24 Complete 19:26 Lactic Acid LAB 11/25/24 Complete 19: Erythrocyte LAB 11/25/24 Complete Sedimentation Rate 19: Crp Quantitative LAB 11/25/24 Complete 19: Vital Signs Date Time Temp Pulse Resp B/P (MAP) Pulse Ox O2 Delivery O2 Flow Rate FiO2 11/25/24 20:00 98.8 66 20 107/85 100 Room Air* 0 21 11/25/24 19:22 97.0 77 20 104/75 98 Room Air Medical Decision Making MDM MDM: 59 Year old male coming in for evaluation of bilateral plantar wounds. Patient states it started off like athlete's foot and progressed to cracking of the skin and now is concerned because he is diabetic. Denies having any fevers, nausea, vomiting . Lab work unremarkable. No evidence of osteomyelitis. Patient was educated extensively on wound care and antibiotics and had a and when to return to the ER. Patient verbalized understanding, answered all questi ons. Differential diagnosis: Colitis, diabetic wound ulcer, tinea corporis, Rationale: Tests considered and ordered secondary to shared decision making include: Previous outside records reviewed: Old ER visits. Risk of complication and/or morbidity or mortality of patient management: None Medications-Per medication reconciliation Need for hospitalization: Patient does not meet criteria for hospitalization. Need for emergency major/minor surgery: No There are no social concerns with this patient. Prescription drug management Prescriptions will include symptomatic care Patient's prior external medical records from other ER visits were reviewed by me as indicated. Prior testing and results from previous visits were reviewed. Prior tests were taken into account with medical decision making and resource utilization, independent historian/historians were used to obtain complete medic al history. I independently interpreted the test that were performed, results were reviewed by me and considered findings on radiology if ordered. Medical management and examination interpretation discussions were had by me with other qualified healthcare professionals as indicated for the patient's care. DX & DISP Disposition: Discharge Departure Impression: Primary Impression: Tinea corporis Additional Impression: Cellulitis Condition: Stable Scripts Sulfamethoxazole/Trimethoprim (Bactrim Ds Tablet) 800 Mg-160 Mg Tablet 1 TAB PO BID for 7 Days, #14 TAB 0 Refills Prov: CRUZ CARPENTER NP 11/25/24 Mupirocin (Mupirocin Ointment) 2 % Oint 1 APPL TP BID for 7 Days, #22 GM 0 Refills apply to affected area(s) Prov: CRUZ CARPENTER NP 11/25/24 Additional Instructions: Please take medications as prescribed. Please maintain the area clean, avoid getting pet hair on the wound. Return to the hospital if you have any evidence of infection like drainage, redness, fevers. Referrals: ANITA GILMORE MD (PCP) Time of Disposition: 21:55 I have reviewed the case, and I agree with, Diagnosis and Plan CRUZ CARPENTER NP Nov 25, 2024 22:00
[2024-11-25 22:03] VITALS: BP 112/70; PULSE 71; RESP 20; TEMP 98.8; O2SAT 100
[2024-11-25] MEDS: cefTRIAXone 1G VIAL IVPB STA (22:19)
== END 2024-11-25 22:05 | disposition home or self-care (01) ==
LOC: EDH 19:21
DX: B35.4 Tinea corporis (principal); L03.116 Cellulitis of left lower limb; L03.115 Cellulitis of right lower limb; E11.9 Type 2 diabetes mellitus without complications; E78.00 Pure hypercholesterolemia, unspecified; F17.200 Nicotine dependence, unspecified, uncomplicated; I11.0 Hypertensive heart disease with heart failure; I50.9 Heart failure, unspecified; J44.9 Chronic obstructive pulmonary disease, unspecified; Z79.82 Long term (current) use of aspirin; Z79.84 Long term (current) use of oral hypoglycemic drugs; Z79.899 Other long term (current) drug therapy; Z88.1 Allergy status to other antibiotic agents; Z90.49 Acquired absence of other specified parts of digestive tract
CPT/HCPCS: 99283; 96374; 80048; 85025; 85651; 83605; 86140; 36415; J0696

== ENCOUNTER 2025-01-23 15:20 | Emergency (ER) | payer OTHER ==
[~2025-01-23] VITALS: Ht 172.7 cm; Wt 125.6 kg
[~2025-01-23 15:20] MED LIST changes: +MUPI22OI2 TP; +SULF1TAB42 PO
[2025-01-23] MEDS ORDERED: IBUP-2077 PO (15:30)
[2025-01-23] MEDS ORDERED: CLIN-141 PO (15:30)
--- NOTE | 2025-01-23 15:31 | ERN ---
ED Note History of Present Illness Stated Complaint: DENTAL PAIN Chief Complaint: Dental Problem Time Seen by MD: 15:23 Dictation: PATIENT IS HERE WITH DENTAL DECAY AND CARIES TO TOOTH NUMBER 29 AND 30 HE HAS HAD FOR A LONG TIME. NO FEVER NO CHILLS. STATES HE IS SUPPOSED TO SEE A DENTIST NEXT WEEK WHO IS GOING TO PULL HIS TEETH AND PUT IN DENTURES. STATES HE WENT TO [place] AND UNILATERALLY BOUGHT SOME AMOXICILLIN HOWEVER WAS ADVISED TODAY TO COME TO THE HOSPITAL FOR A BETTER MEDICATION. Allergies: Coded Allergies: ciprofloxacin (Unverified Allergy, Unknown, 08/23/19) Home Meds Active Scripts Sulfamethoxazole/Trimethoprim (Bactrim Ds Tablet) 800 Mg-160 Mg Tablet, 1 TAB PO BID for 7 Days, #14 TAB 0 Refills Prov:CRUZ CARPENTER PAPER MAKING MACHINE OPERATOR 11/25/24 Mupirocin (Mupirocin Ointment) 2 % Oint, 1 APPL TP BID for 7 Days, #22 GM 0 Refills apply to affected area(s) Prov:CRUZ CARPENTER PAPER MAKING MACHINE OPERATOR 11/25/24 Reported Medications Carvedilol (Carvedilol) 12.5 Mg Tablet, 12.5 MG PO BID, TAB 10/15/24 [ozempic] No Conflict Check, 1 MG SQ weekly 10/13/24 Fluoxetine HCl (Prozac) 40 Mg Capsule, 40 MG PO AM, CAP 04/16/24 Nitroglycerin (Nitroglycerin) 0.4 Mg Tab.subl, 0.4 MG SL AD PRN for CHEST PAIN, TAB.SL 04/14/24 Atorvastatin Calcium (Atorvastatin Calcium) 40 Mg Tablet, 40 MG PO AM, TAB 04/14/24 Furosemide (Lasix) 40 Mg Tablet, 40 MG PO AM, TAB 04/14/24 Sacubitril/Valsartan (Entresto 49 mg-51 mg Tablet) 49 Mg-51 Mg Tablet, 0.5 EACH PO BID, TAB 04/14/24 [Albutero] No Conflict Check, 2 PUFF IH BID 01/04/24 Tiotropium [place] (Spiriva Respimat) 2.5 Mcg/Actuation Mist.inhal, 2 PUFF IH BID PRN for SHORTNESS OF BREATH 01/04/24 [VITAMIN d] No Conflict Check, PO DAILY 01/04/24 Metformin HCl (Metformin HCl) 1,000 Mg Tablet, 1000 MG PO BID, TAB CONTINUE IN 48 HOURS (04/18/2024) 01/04/24 Empagliflozin (Jardiance) 25 Mg Tablet, 25 MG PO BID, TAB 01/04/24 Buspirone HCl (Buspirone HCl) 15 Mg Tablet, 15 MG PO DAILY, TAB 01/04/24 Aspirin (Aspirin) 81 Mg Tab.chew, 81 MG PO DAILY, TAB.CHEW 01/04/24 Amlodipine Besylate (Amlodipine Besylate) 5 Mg Tablet, 5 MG PO DAILY, TAB 01/04/24 Past Medical History Past Medical History: CHF, COPD, Diabetes-Type II, High Cholesterol, Hypertension, [place] Surgical History: Appendectomy Surgical History Other: ARTERY STENT Social History: Smokers, Lives with family RN Note Reviewed/Agreed w/PFSH: Yes Review of System Dictation CONSTITUTIONAL: NEGATIVE EXCEPT FOR HPI HEAD/FACE: NEGATIVE EXCEPT FOR HPI EENT: NEGATIVE EXCEPT FOR HPI DENTAL CARIES AND DECAY SEVERE NUMBER 29 AND 30 RESPIRATORY: NEGATIVE EXCEPT FOR HPI GASTROINTESTINAL/ABDOMINAL: NEGATIVE EXCEPT FOR HPI GENITOURINARY: NEGATIVE EXCEPT FOR HPI MUSCULOSKELETAL: NEGATIVE EXCEPT FOR HPI INTEGUMENTARY: NEGATIVE EXCEPT FOR HPI NEUROLOGICAL/PSYCH: NEGATIVE EXCEPT FOR HPI HEMATOLOGIC/LYMPHATIC: NEGATIVE EXCEPT FOR HPI ALL SYSTEMS NEGATIVE, EXCEPT NOTED ABOVE. 13 POINT REVIEW OF SYSTEMS ASSESSED AND ALL NEGATIVE EXCEPT FOR ABOVE. Physical Exam Dictation VITAL SIGNS REVIEWED GENERAL APPEARANCE: ALERT, ORIENTED X 3, MILD ACUTE DISTRESS, WELL DEVELOPED, NOURISHED. MORBID HEAD AND FACE: NON-TRAUMATIC. EYES: PERRL, PINK CONJUNCTIVAS, EYELID NO TRAUMA, ANTERIOR CHAMBER WITH ARCUS SENILIS. EARS: PINNAS INTACT AND NO SIGNS OF TRAUMA OR ERYTHEMA EAR CANALS CLEAR AND NO DISCHARGE TM NO ERYTHEMA NOSE: NO DISCHARGE, NO BLEEDING. OROPHARYNX: MOUTH NORMAL, TONGUE PINK, TEETH SEVERELY ERODED AND DECAYED NUMBER 29 AND 30. NO GINGIVAL ERYTHEMA PHARYNX CLEAR,NO ERYTHEMA, TONSILS NO EXUDATES, NO ABSCESSES NOTED, MUCOUS MEMBRANE MOIST NECK: SUPPLE, NON-TENDER, NO THYROMEGALY, NO MASSES, NO JVD, NO BRUITS BREAST:DEFERRED CHEST:NO TENDERNESS, NO CREPITUS, NO PARADOXICAL MOVEMENT, NO RETRACTIONS LUNGS:CLEAR, WELL-VENTILATED, SYMMETRIC, NO RALES, NO WHEEZING, NO RHONCHI, NO STRIDOR, GOOD BREATH SOUNDS BILATERALLY HEART: REGULAR RATE, REGULAR RHYTHM, NO MURMUR, NO GALLOPS VASCULAR: NO PERIPHERAL EDEMA, ABDOMEN: SOFT, POSITIVE BOWEL SOUNDS, NONDISTENDED, NO GUARDING, NONTENDER, NO REBOUND, NO MASSES NO HEPATOMEGALY, NO SPLENOMEGALY, NO HUNTER'S SIGN, NO HERNIAS. RECTAL: DEFERRED GENITAL: DEFERRED NEUROLOGICAL: NORMAL SPEECH, MOTOR FUNCTION INTACT, SENSORY FUNCTION INTACT MUSCULOSKELETAL: NECK NONTENDER, FULL RANGE OF MOTION, BACK NONTENDER, FULL RANG E OF MOTION, EXTREMITIES: NONTENDER, FULL RANGE OF MOTION SKIN: COLOR PINK, DRY, NO TURGOR, NO RASH, NO LACERATIONS, NO ABRASIONS, NO CONTUSIONS. LYMPHATIC: DEFERRED Results (Laboratory/Radiology) Labs Reviewed?: Yes ED Course ED Course Orders Procedure Category Date Status Time Ibuprofen 800 Mg Tab PHA 01/23/25 Transmitted (Motrin) 15:30 1525/PATIENT IS STRONGLY ADVISED TO STOP AMOXICILLIN FROM IN [place], DOES NOT COVER ANAEROBES. HE WILL BE PRESCRIBED CLINDAMYCIN AND TOLD TO SEE HIS DENTIST NEXT WEEK. Medical Decision Making MDM MEDICAL DECISION-MAKING BASED ON EMPIRIC TREATMENT OF DENTAL DECAY CASE TO INCLUDE ANAEROBIC COVERAGE BE PRESCRIBED CLINDAMYCIN AND IBUPROFEN. TOLD SEE HIS DOCTOR ON FRIDAY OR FRIDAY THE DENTIST WITHOUT FAIL FOR MANAGEMENT DX & DISP Disposition: Discharge Departure Impression: Primary Impression: Dental caries extending into pulp Additional Impression: Dental decay Condition: Stable Scripts Ibuprofen (Ibuprofen 800 mg Tab) 800 Mg Tab 800 MG PO Q8H PRN for fever or pain, #30 TAB 0 Refills Prov: MARLINE DOMINGUEZ NP 01/23/25 Clindamycin HCl (Clindamycin HCl) 300 Mg Capsule 1 CAP PO QID for 10 Days, #40 CAP 0 Refills Prov: MARLINE DOMINGUEZ PAPER MAKING MACHINE OPERATOR 01/23/25 Additional Instructions: FOLLOW-UP WITH PRIMARY CARE PROVIDER IN 1 TO 2 DAYS. TAKE MEDICATIONS DIRECTED HERE IN THE EMERGENCY ROOM. OKAY TO CONTINUE HOME MEDICATIONS UNLESS OTHERWISE DISCUSSED DURING YOUR VISIT IN THE EMERGENCY ROOM TODAY. RETURN TO YOUR NEAREST EMERGENCY ROOM IF SYMPTOMS WORSEN OR IF THERE IS NO IMPROVEMENT. CALL 911 IF YOU NEED IMMEDIATE ASSISTANCE. TAKE TYLENOL OR MOTRIN OVER-THE- COUNTER NEEDED AND IF NO CONTRAINDICATIONS ARE PRESENT. INCREASE ORAL HYDRATION. A WOUND CULTURE OR URINE CULTURE WAS ORDERED HERE IN THE EMERGENCY ROOM DEPARTMENT PLEASE FOLLOW-UP WITH PRIMARY CARE PROVIDER AND ADVISE THEM TO GET REPEAT PORTS FROM OUR FACILITY. IF YOU HAD ANY OSKAR WRAP/SPLINTS THAT WERE APPLIED HERE, PLEASE DO NOT REMOVE THEM UNTIL YOU SEE YOUR PRIMARY CARE OR SPECIALTY. STOP ANTIBIOTICS FROM [place]. START CLINDAMYCIN WITH TWO CAPSULES FOR THE 1ST DOSE, THEN TAKE ONE CAPSULE EVERY 6 HOURS DIRECTED UNTIL GONE. SEE YOUR DENTIST NEXT WEEK ON FRIDAY OR FRIDAY FOR FOLLOW UP AND MANAGEMENT OF YOUR DENTAL PAIN PRESSURE Referrals: ANITA GILMORE MD (PCP) Time of Disposition: 15:29 I have reviewed the case, and I agree with, Diagnosis and Plan MARLINE DOMINGUEZ NP Jan 23, 2025 15:31
[2025-01-23] MEDS: ibuPROFEN 800 MG TAB PO ONE (16:43)
[2025-01-23 16:52] VITALS: BP 145/78; PULSE 87; RESP 18; TEMP 98.4; O2SAT 97
== END 2025-01-23 16:56 | disposition home or self-care (01) ==
LOC: EDH 15:20
DX: K02.9 Dental caries, unspecified (principal); I11.0 Hypertensive heart disease with heart failure; I50.9 Heart failure, unspecified; J44.9 Chronic obstructive pulmonary disease, unspecified; E78.00 Pure hypercholesterolemia, unspecified; E11.9 Type 2 diabetes mellitus without complications; F17.200 Nicotine dependence, unspecified, uncomplicated; Z79.82 Long term (current) use of aspirin; Z79.84 Long term (current) use of oral hypoglycemic drugs; Z79.899 Other long term (current) drug therapy; Z88.1 Allergy status to other antibiotic agents; Z90.49 Acquired absence of other specified parts of digestive tract
CPT/HCPCS: 99283